=== PATIENT | male | born 1945 | race Caucasian/White ===

== ENCOUNTER 2019-01-17 10:29 | Outpatient (REF) | payer OTHER, SELFPAY ==
[2019-01-17 21:14] LABS: Calculated LDL 152 mg/dL; Cholesterol 230 mg/dL (50-200); Glucose 91 mg/dL (70-100); HDL Cholesterol 35 mg/dL (40-60); Triglyceride 217 mg/dL (30-150)
== END 2019-01-17 10:49 ==
LOC: NCHCN 10:29
PROVIDERS: PCP Internal Medicine; Visit Provider Internal Medicine
DX: E78.5 Hyperlipidemia, unspecified (principal)
CPT/HCPCS: 80061; 82947; 83721

== ENCOUNTER 2019-04-09 11:20 | Outpatient (REF) | payer OTHER, SELFPAY ==
[2019-04-09 21:36] LABS: Calculated LDL 79 mg/dL; Cholesterol 139 mg/dL (50-200); HDL Cholesterol 38 mg/dL (40-60); Triglyceride 112 mg/dL (30-150)
== END 2019-04-09 11:40 ==
LOC: NCHCN 11:20
PROVIDERS: PCP Internal Medicine; Visit Provider Internal Medicine
DX: E78.5 Hyperlipidemia, unspecified (principal)
CPT/HCPCS: 80061

== ENCOUNTER 2019-09-27 17:22 | Outpatient (REF) | payer OTHER, SELFPAY ==
[2019-09-27 20:09] LABS: HCT 47.2 % (40.0-50.0); HGB 16.1 g/dL (13.5-17.5); Mean Corp. HGB Concentration 34.1 g/dL (32.0-36.0); Mean Corpuscular Hemoglobin 30.7 pg (27.0-33.0); Mean Corpuscular Volume 89.9 fL (80-95); Platelet Count 275 x1000/uL (130-400); RBC 5.25 m/cumm (4.50-6.00); RBC Distribution Width 12.6 % (11.8-14.1); White Blood Cell Count 7.83 k/cumm (4.4-10.8)
[2019-09-27 20:33] LABS: Anion Gap 11.1 mmol/L (3-11); BUN 17 mg/dL (7-18); CO2 25.9 mmol/L (21.0-32.0); CREATININE 1.21 mg/dL (0.70-1.30); Chloride 106 mmol/L (98-107); Estimated GFR 58.78 (mL/min/1.73m2); Glucose 93 mg/dL (74-106); Magnesium 2.1 mg/dL (1.8-2.4); Potassium 4.2 mmol/L (3.5-5.1); Sodium 143 mmol/L (136-145); TSH (W/Ref FT4) 1.77 uIU/mL (0.36-3.74)
== END 2019-09-27 17:42 ==
LOC: NCHCN 17:22
PROVIDERS: Visit Provider Nurse Practitioner Family
DX: I48.91 Unspecified atrial fibrillation (principal)
CPT/HCPCS: 80048; 85027; 83735; 84443

== ENCOUNTER 2019-10-03 02:59 | Outpatient (CLI) | payer OTHER, SELFPAY | END 2019-10-03 03:19 | PROVIDERS: PCP Internal Medicine; Visit Provider Nurse Practitioner Family | DX: I48.91 Unspecified atrial fibrillation (principal) | CPT/HCPCS: 93225 ==

== ENCOUNTER 2019-10-09 16:04 | Outpatient (CLI) | payer OTHER, SELFPAY ==
--- NOTE | 2019-10-10 09:47 | W.HOLTRPT ---
Date of service: 10/10/19 Time of Service: 09:47 Holter Monitor Report Holter Monitor Note: This is a 2-day Holter monitor ordered for the indication of atrial fibrillation. ?The patient was normal sinus rhythm for majority of the recording. ?There were 23 episodes of supraventricular tachycardia with the longest lasting 6 beats. ?There were rare (0.4%) premature atrial contractions. ?There were 0 episodes of ventricular tachycardia and 2 singular ventricular ectopic beats. ?Patient had 2 episodes of atrial fibrillation with the longest lasting 1 hour and 20 minutes. Total duration of atrial fibrillation during this 2-day period was 1 hour 21 minutes (2.8% burden). ?There were no episodes of high degree heart block and no pauses greater than 3 seconds.
== END 2019-10-09 16:24 ==
PROVIDERS: PCP Internal Medicine; Visit Provider Internal Medicine
DX: I48.91 Unspecified atrial fibrillation (principal)
CPT/HCPCS: 93226

== ENCOUNTER 2019-10-10 09:47 | Outpatient (CLI) | payer OTHER, SELFPAY | END 2019-10-10 10:07 | PROVIDERS: PCP Internal Medicine; Referring Provider Internal Medicine; Visit Provider Internal Medicine Cardiovascular Disease | DX: I48.91 Unspecified atrial fibrillation (principal) | CPT/HCPCS: 93227 ==

== ENCOUNTER 2021-01-14 08:53 | Outpatient (REF) | payer OTHER, SELFPAY ==
[2021-01-14 13:31] LABS: Calculated LDL 163 mg/dL (<100); Cholesterol 224 mg/dL (<200); HDL Cholesterol 38 mg/dL (40-60); Triglyceride 115 mg/dL (<150)
== END 2021-01-14 08:54 | disposition home or self-care (01) ==
LOC: NCHCN 08:53
PROVIDERS: Visit Provider Internal Medicine
DX: E78.5 Hyperlipidemia, unspecified (principal)
CPT/HCPCS: 80061

== ENCOUNTER → 2021-03-23 08:30 | Outpatient (BNVA) | payer OTHER, SELFPAY | PROVIDERS: PCP Family Medicine; Referring Provider Family Medicine; Visit Provider Surgery | DX: K64.8 Other hemorrhoids (principal); Z86.010 Personal history of colon polyps | CPT/HCPCS: 99203; 99213 ==

== ENCOUNTER 2022-02-15 16:24 | Outpatient (REF) | payer OTHER, SELFPAY ==
[2022-02-15 14:49] LABS: Abs Immature Grans 0.01 10^3/uL (0.0-0.06); Absolute Basophil Count 0.05 10^3/uL (0.0-0.2); Absolute Eosinophil Count 0.12 10^3/uL (0.0-0.7); Absolute Lymphocyte Count 1.34 10^3/uL (1.2-3.4); Absolute Monocyte Count 0.53 10^3/uL (0.1-0.8); Absolute Neutrophil Count 3.62 10^3/uL (1.2-6.7); Basophils % 0.9; Eosinophils % 2.1; HCT 45.8 % (40.0-50.0); HGB 15.7 g/dL (13.5-17.5); Immature Grans % 0.2; Lymphocytes % 23.6; MCH 31.7 pg (27.0-33.0); MCHC 34.3 % (32.0-36.0); MCV 92 fL (80-95); MPV 9.6 fL (8.0-11.0); Monocytes % 9.3; Neutrophils % 63.9; Platelet Count 251 10^3/uL (130-400); RBC 4.96 10^6/uL (4.36-5.78); RDW 12.1 % (11.8-14.1); RDW-SD 41.2 fL; WBC 5.67 10^3/uL (4.4-10.8)
[2022-02-15 15:25] LABS: Anion Gap 7.5 mmol/L (3-11); BUN 15 mg/dL (7-18); CO2 26.5 mmol/L (21.0-32.0); CREATININE 1.2 mg/dL (0.70-1.30); Calcium 9.1 mg/dL (8.5-10.1); Chloride 106 mmol/L (98-107); Estimated GFR 59.02 (mL/min/1.73m2); Glucose 104 mg/dL (74-106); Potassium 4.6 mmol/L (3.5-5.1); Sodium 140 mmol/L (136-145)
== END 2022-02-15 16:25 | disposition home or self-care (01) ==
LOC: NCHCN 16:24
PROVIDERS: PCP Family Medicine; Visit Provider Family Medicine
DX: I48.0 Paroxysmal atrial fibrillation (principal); N40.1 Benign prostatic hyperplasia with lower urinary tract symptoms
CPT/HCPCS: 80048; 85025

== ENCOUNTER → 2022-10-03 08:56 | Outpatient (BNVA) | payer MEDICARE, SELFPAY | PROVIDERS: PCP Family Medicine; Referring Provider Family Medicine; Visit Provider Surgery | DX: Z12.11 Encounter for screening for malignant neoplasm of colon (principal); Z86.010 Personal history of colon polyps; K64.8 Other hemorrhoids | CPT/HCPCS: 99242 ==

== ENCOUNTER 2022-10-10 08:44 | Day surgery (SDC) | payer MEDICARE, SELFPAY ==
--- NOTE | 2022-10-09 17:43 | W.ANESPRE ---
General Info Date of Service Date Performed: 10/10/22 Height: 5 ft 8 in Weight: 75.296 kg Body Mass Index (BMI): 25.2 Surgical Procedure: Operation Date: 10/10/22 11:20 Proposed Procedure Side Surgeon p Hugo Esparza MD Meds Allergies and Home Medications Allergies Allergy/AdvReac Type Severity Reaction Status Date / Time shellfish derived Allergy Intermediate Verified 10/07/22 14:10 Home Medication Medication Instructions Recorded tamsulosin 0.4 mg capsule 0.4 mg PO DAILY 04/23/13 ascorbic acid (vitamin C) 500 mg 500 mg PO DAILY 03/11/21 tablet cholecalciferol (vitamin D3) 125 125 mcg PO DAILY 03/11/21 mcg (5,000 unit) capsule docusate sodium 100 mg capsule 100 mg PO BID 03/11/21 (Colace) rivaroxaban 20 mg tablet (Xarelto) 20 mg PO DAILY 03/11/21 vitamin A 2,400 mcg capsule 1,000 unit PO DAILY 03/11/21 vitamin E 670 mg (1,000 unit) 1,000 unit PO DAILY 03/11/21 capsule Current Visit Medications: Current Medications Generic Name Dose Route Start Last Admin Trade Name Freq PRN Reason Stop Dose Admin Ringer's Solution 1,000 mls @ 80 mls/hr 10/10/22 06:00 IV 11/06/22 23:59 INFUSION ALEXX IV Miscellaneous Supplies 1 each 10/10/22 06:00 Iv Access IV 11/06/22 23:59 DIRECTED ALEXX Sodium Chloride 0 ml 10/10/22 06:00 Normal Saline Flush 10 Ml Syr IV 11/06/22 23:59 PRN PRN Sodium Chloride 0 ml 10/10/22 06:00 Normal Saline 10 Ml Vial IJ 11/06/22 23:59 DIRECTED PRN Sterile Water 0 ml 10/10/22 06:00 Water,Injection,Sterile 10 Ml Vial IJ 11/06/22 23:59 DIRECTED PRN PFSH Active Problems Active Problems: Problem Status Onset Code Paroxysmal A-fib I48.0 Screening for colon cancer Z12.11 Hyperlipidemia E78.5 Internal hemorrhoids K64.8 Medical History Medical History BPH (benign prostatic hyperplasia) History of adenomatous polyp of colon PAT (paroxysmal atrial tachycardia) Prepatellar bursitis Shellfish allergy Surgical History Surgical History Colonoscopy - MAC (05/10/17) Tobacco Smoking/Tobacco Use Status: Former Tobacco Use Alcohol Alcohol Intake: never Substance Use Substance use: Never Substance use type: does not use Vital Signs and Lab Results Lab Results Blood Type / Crossmatch: No Data to Display Complete Blood Count: No Data to Display Complete Metabolic Panel: No Data to Display Liver Function Panel: No Data to Display Coagulation Panel: No Data to Display Cardiac Panel: No Data to Display Arterial Blood Gas: No Data to Display Venous Blood Gas: No Data to Display Pancreas Panel: No Data to Display Thyroid Panel: No Data to Display Infectious Disease: No Data to Display Blood Cultures: No Data to Display Toxicology Panel: No Data to Display Anesthesia Assessment and Plan Anesthesia History Personal History: No History of Anesthesia Complications Family History: No Family History of Anesthesia Complications Exercise Tolerance Exercise Tolerance: Metabolic Equivalents>4 Cardiac & Pulmonary Exam Cardiac Exam: Normal S1/S2 Heart Sounds Pulmonary Exam: Clear Bilateral Breath Sounds Implantable Cardiac Device Does patient have a Pacemaker or an ICD?: No Airway Exam Known Difficult Airway: No Mallampati Class: 2 Mouth Opening: Normal (> 3cm) Thyromental Distance: Greater than 3 cm Neck Range of Motion: Full ROM Neck Circumference: Normal Teeth Condition: Normal Dentition ASA Classification ASA Score: ASA 2 Emergency Case?: No NPO Status NPO Status: NPO Clears >2 hours, Solids >8 hours Anesthesia Plan Resuscitation Status: Full Code Anesthesia Technique: General Anesthesia Airway Planned: Natural Airway Monitors Used: Standard Monitors Preoperative Comments:: 77 yo male with adenoma hx for colo. Sig PMHx: afib (rivaroxaban), former smoker, never etoh, Previous Anes: - colo, prop, natural airway, no issues.
--- NOTE | 2022-10-09 20:31 | W.PM.DSUDISC ---
Date of service: 10/10/22 Time of Service: 10:01 Discharge Plan Disposition Patient Disposition: Home Condition: Good Discharge Details Reason For Visit: Colonoscopy Attending Provider: Laci Esparza Primary Care Provider: Jose Trejo Home Meds and New Rx's Prescriptions: Continued tamsulosin 0.4 MG capsule 0.4 mg PO DAILY docusate sodium [Colace] 100 mg capsule 100 mg PO BID ascorbic acid (vitamin C) 500 mg tablet 500 mg PO DAILY vitamin E 1,000 unit capsule 1,000 unit PO DAILY vitamin A 2,400 mcg capsule 1,000 unit PO DAILY cholecalciferol (vitamin D3) 125 mcg (5,000 unit) capsule 125 mcg PO DAILY Xarelto 20 mg tablet 20 mg PO DAILY Rx Instructions: must administer with evening meal Discontinued polyethylene glycol 3350 17 gram/dose powder 238 g PO ONCE Qty: 238 0RF Rx Instructions: take per colonoscopy instructions bisacodyl [Dulcolax (bisacodyl)] 5 mg tablet,delayed release (DR/EC) 5 mg PO ONCE Qty: 4 0RF Rx Instructions: take per colonoscopy instructions Discharge Instructions Additional Instructions: Adam, we were able to complete your colonoscopy today without any difficulty. The quality of your preparation was excellent. I did not see any evidence of tumors or polyps. Based on your previous polyp, and this negative colonoscopy, my recommendations for another colonoscopy at 10 years. However, you should know that physicians are not in agreement with the utility of screening colonoscopies after age 85. I recommend that you speak with your primary care physician during the years to come. If you are in your usual state of good health, then you feel up to another colonoscopy at age 87, I think it would be reasonable to consider. 1. If tolerated, consume a soft, low fiber diet for 1-2 days. 2. Do not drive, drink alcohol, operate machinery, make critical decisions, or do activities that require coordination or balance for 24 hours. 3. Because air was put into your colon during the procedure, expelling air from your rectum (passing gas or farting) is normal. 4. You may not have a bowel movement for 1-3 days because of the colonoscopy prep. This is normal. 5. Go directly to the emergency room if you notice any of the following: Develop chills (warm to touch), or if you have a thermometer and your temperature is above 101 Difficulty breathing or difficultly swallowing Persistent vomiting Severe abdominal pain, other than gas cramps Severe chest pain Black, tarry stools Any bleeding ? exceeding one tablespoon 6. Call your physician if the site where your intravenous was started becomes red, swollen, painful, and warm to touch. 7. Your physician has reviewed your pre-procedure medications. Please continue to take those medications as previously ordered. You will be given specific information/education regarding any changes to your medications before leaving. Stand Alone Forms: Guru Scott (DSU) Activity:: Activity as Tolerated Diet:: As Tolerated Discharge Orders Discharge Orders: Discharge Order (Routine); Ordered 10/09/22 Ordered By: Laci Esparza DS: Diagnosis Discharge Diagnosis (1) Screening for colon cancer: Status: Acute Asessment and Plan: Recommend neck screening colonoscopy in 10-year interval
--- NOTE | 2022-10-09 20:33 | W.COLOREPORT ---
Date of service: 10/10/22 Time of Service: 10:04 Colonoscopy Report Date of procedure: 10/10/22 Pre-op diagnosis general: Screening colonoscopy Post-op diagnosis procedure note: same (Normal colonoscopy) Procedure: Colonoscopy Surgeon: Laci Esparza Anesthesia Type: General:No Airway Estimated blood loss (mL): 0 Pathology: none sent Complications: None Disposition: same day Indications: Adam is 77 years old he was founf to have colon polyps on a colonoscopy 5 years ago. He is here today for another surveillance screening colonoscopy Prep: Miralax/Dulcolax Procedure Start Time: 09:32 Procedure End Time: 09:49 Retraction Time: 11 Findings: Normal colonoscopy Procedure Description: After the induction of monitored anesthetic care, and with the patient in left lateral decubitus position, I began by performing an external anorectal exam.? Perineum and skin were normal, as was the anal verge.? There was no evidence of external hemorrhoids.? Next, I performed a digital rectal exam.? I did not appreciate any abnormal findings.? Next, I advanced a colonoscope into the rectal vault.? I performed retroflexion.? This was normal.? Using insufflation, I then advanced the colonoscope beyond the rectal folds and into the sigmoid colon before advancing towards the cecum.? The quality of the prep was excellent.? The scope was noted to be in the cecum by identification of the ileocecal valve and appendiceal orifice.? I then began withdrawing the colonoscope using repeated irrigation as necessary for full evaluation of the colonic mucosa. ?Once the scope was withdrawn to the level of the rectum, great care was taken to examine portions of the rectal folds.? I did not see any evidence of tumors or polyps, or other abnormalities such as diverticulosis during this colonoscopy. Finally, the scope was withdrawn and the patient was brought to the same-day surgery recovery unit as the anesthetic wore off. ?The findings and instructions were shared with the patient prior to discharge.
[2022-10-10 08:49] VITALS: BP 153/76; PULSE 86; RESP 18; TEMP 36.1; O2SAT 98
[2022-10-10 09:12] VITALS: BMI 25.2
[2022-10-10] MEDS: Lactated Ringers 1,000 ML 80 ML IV (09:19)
[2022-10-10 09:56] VITALS: BP 97/55; PULSE 64; RESP 16; TEMP 36.7; O2SAT 96
--- NOTE | 2022-10-10 10:02 | W.ANESPOSTOP ---
Postoperative Evaluation Date, Time and Location Date Performed: 10/10/22 Time Performed: 10:02 Patient Location: Day Surgery Unit Vital Signs Most Recent Imported Vital Signs: Most Recent Vital Signs Temp Pulse Resp BP Pulse Ox 36.7 C 64 16 97/55 L 96 10/10/22 09:56 10/10/22 09:56 10/10/22 09:56 10/10/22 09:56 10/10/22 09:56 Pain Score Most Recent Pain Score: Most Recent Pain Score Pain Level 0 10/10/22 09:56 Assessment Mental Status: Awake (Alert & Oriented to Patient Baseline) Airway and Respiratory Function: Patent airway with normal (patient baseline) respiratory exam Cardiovascular Function: Hemodynamically Stable Hydration Status: Adequately Hydrated Nausea & Vomiting: No Nausea or Vomiting Pain: Pt. Denies Any Pain Peripheral Nerve Block: Patient did not receive a nerve block
[2022-10-10 10:25] VITALS: BP 121/75; PULSE 65; RESP 16; TEMP 37; O2SAT 98
== END 2022-10-10 11:02 | disposition home or self-care (01) ==
PROVIDERS: PCP Family Medicine; Visit Provider Surgery
PROC: 0DJD8ZZ Inspection of Lower Intestinal Tract, Via Natural or Artificial Opening Endoscopic (ICD-10-PCS; CPT 45378; principal; 2022-10-10 11:15)
DX: Z12.11 Encounter for screening for malignant neoplasm of colon (principal); Z86.010 Personal history of colon polyps
CPT/HCPCS: G0105

== ENCOUNTER 2023-03-01 01:44 | Outpatient (CLI) | payer MEDICARE, SELFPAY ==
--- NOTE | 2023-03-01 | DI.RAD_ITS ---
Exam(s) XR HAND LT COMPLETE EXAM: XR HAND LT COMPLETE CLINICAL HISTORY: LT FINGER PAIN, M79.645. TECHNIQUE: 2D digital imaging was performed. Three views. COMPARISON: No exams were available for comparison FINDINGS: BONES: No acute fracture is present. No bony destructive lesion is seen. JOINTS: No dislocation present. Mild degenerative changes of the interphalangeal joints. SOFT TISSUE: Normal. IMPRESSION: Mild degenerative changes. DATA REPOSITORY: RADIATION DOSE DELIVERED:
== END 2023-03-01 02:04 ==
PROVIDERS: PCP Family Medicine; Visit Provider Family Medicine
DX: M79.645 Pain in left finger(s) (principal)
CPT/HCPCS: 73130

== ENCOUNTER 2023-04-18 02:48 | Outpatient (CLI) | payer MEDICARE, SELFPAY ==
[2023-04-18 07:46] LABS: HCT 44.8 % (40.0-50.0); HGB 15.3 g/dL (13.5-17.5); MCH 30.8 pg (27.0-33.0); MCHC 34.2 % (32.0-36.0); MCV 90 fL (80-95); Platelet Count 246 10^3/uL (130-400); RBC 4.97 10^6/uL (4.36-5.78); RDW-SD 40.2 fL; WBC 5.95 10^3/uL (4.4-10.8)
[2023-04-18 08:38] LABS: ALT 19 U/L (16-63); AST 11 U/L (15-37); Albumin 3.5 g/dL (3.4-5.0); Alkaline Phosphatase 66 U/L (46-116); Anion Gap 7.1 mmol/L (3-11); BUN 15 mg/dL (7-18); Bilirubin, Total 0.5 mg/dL (0.2-1.0); CO2 25.9 mmol/L (21.0-32.0); CREATININE 1.2 mg/dL (0.70-1.30); Calcium 9.1 mg/dL (8.5-10.1); Calculated LDL 141 mg/dL (<100); Chloride 106 mmol/L (98-107); Cholesterol 202 mg/dL (<200); Estimated GFR 62.67 (mL/min/1.73m2); Glucose 116 mg/dL (74-106); HDL Cholesterol 41 mg/dL (40-60); Potassium 3.9 mmol/L (3.5-5.1); Sodium 139 mmol/L (136-145); Total Protein 7.2 g/dL (6.4-8.2); Triglyceride 102 mg/dL (<150)
== END 2023-04-18 02:49 | disposition home or self-care (01) ==
LOC: LBO 02:48
PROVIDERS: PCP Family Medicine; Visit Provider Family Medicine
DX: E78.5 Hyperlipidemia, unspecified (principal); I48.0 Paroxysmal atrial fibrillation
CPT/HCPCS: 36415; 80053; 80061; 85027

== ENCOUNTER 2025-03-04 13:08 | Outpatient (REF) | payer MEDICARE, SELFPAY ==
[2025-03-04 16:15] LABS: Abs Immature Grans 0.00 10^3/uL (0.0-0.06); HCT 44.3 % (40.0-50.0); HGB 14.9 g/dL (13.5-17.5); Immature Grans % 0.0 %; MCH 31.2 pg (27.0-33.0); MCHC 33.6 % (32.0-36.0); MCV 93 fL (80-95); MPV 9.6 fL (8.0-11.0); Platelet Count 237 10^3/uL (130-400); RBC 4.78 10^6/uL (4.36-5.78); RDW 11.9 % (11.8-14.1); RDW-SD 41.0 fL; WBC 5.06 10^3/uL (4.4-10.8)
[2025-03-04 16:41] LABS: ALT 21 U/L (16-63); AST 14 U/L (15-37); Albumin 3.9 g/dL (3.4-5.0); Alkaline Phosphatase 54 U/L (46-116); Anion Gap 7.3 mmol/L (3-11); BUN 15 mg/dL (7-18); Bilirubin, Total 0.5 mg/dL (0.2-1.0); CO2 28.7 mmol/L (21.0-32.0); Calcium 9.2 mg/dL (8.5-10.1); Chloride 107 mmol/L (98-107); Estimated GFR 77.04 (mL/min/1.73m2); Glucose 95 mg/dL (74-106); Potassium 4.4 mmol/L (3.5-5.1); Sodium 143 mmol/L (136-145); TSH 0.89 uIU/mL (0.36-3.74); Total Protein 6.8 g/dL (6.4-8.2)
== END 2025-03-04 13:09 | disposition home or self-care (01) ==
LOC: NCHCN 13:08
PROVIDERS: PCP Family Medicine; Visit Provider Family Medicine
DX: I48.0 Paroxysmal atrial fibrillation (principal)
CPT/HCPCS: 80053; 84443; 85025